=== PATIENT | male | born 2005 | race Caucasian/White ===

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

== ENCOUNTER 2024-03-05 21:53 | Emergency (ER) | payer OTHER, SELFPAY ==
--- OUTSIDE RECORDS SUMMARY | 2024-03-05 21:58 | XMS REPORT | Continuity of Care Document ---
Author Name Unknown Address [address] [facility] [address] [place] [address] [facility] thconnect Address [address] [facility] [address] [place] [address] Care Team Providers Care State Editor Name Role Phone Pcp, Patient Does Not Have A Primary Care Physic zoila STACI PINO Attending Clinician Unavailable STACI PINO Attending Clinician Unavailable Staci Pino NP Attending Clinician [phone] EDWIN TIRADO Attending Clinician Unavailable Edwin Tirado DO Attending Clinician [phone] ZEESHAN RANGEL Attending Clinician Unavailable Zeeshan Madrid Attending Clinician [phone] Mayte Pretty DO Attending Clinician [phone] CAMPOS AMADOR Attending Clinician Unavailable Campos Amador MD Attending Clinician +[phone] TOMAS SAINI Attending Clinician Unavailable Tomas Saini MD Attending Clinician [phone] KRISTAN Attending Clinician Unavailable ZEESHAN RANGEL Admitting Clinician Unavailable CAMPOS AMADOR Admitting Clinician Unavailable TOMAS SAINI Admitting Clinician Unavailable KRISTAN Admitting Clinician Unavailable Payers Payer Name Policy Type Policy Number Effective Date Expirati on Date Source [facility] [id number] [id number] 00:00:00 FORMERLY [facility] (MEDICAID REPLACEMENT - HMO) [id number] 2019 00:00:00 [facility] (MEDICAID REPLACEMENT - HMO) [id number] Problems Condition Name Condition Details Condition Category Status Onset Date Resolution Date Last Treatment Date Treating Clinician Comments Source History of drug abuse History of Drug Abuse Problem Active 2023-04 00:00: 00 [facility] Neck pain Neck Pain Problem Active 2023-04 00:00: 00 [facility] Attention deficit hyperactiv ity disorder, predominan tly inattentiv e type Attention Deficit Hyperactiv ity Disorder, Predominan tly Inattentiv e Type Problem Active 10-13 00:00: 00 [facility] Major depressive disorder Major Depressive Disorder Problem Active 2020-04 00:00: 00 [facility] Generalize d anxiety disorder Generalize d Anxiety Disorder Problem Active 2020-04 00:00: 00 [facility] Cannabis abuse Cannabis Abuse Problem Active 2020-04 00:00: 00 [facility] Opposition al defiant disorder Opposition al Defiant Disorder Problem Active 2020-04 00:00: 00 [facility] Allergies, Adverse Reactions, Alerts Allergy Name Allergy Type Status Severity Reaction(s) Onset Date Inactive Date Treating Clinician Comments Source NO KNOWN ALLERGIE S Drug Class Active [facility] Social History Social Habit Start Date Stop Date Quantity Comments Source Gender identity [facility] Sexual orientation [facility] Sex assigned at 2004 00:00:00 2005 00:00:00 [facility] Smoking Status Start Date Stop Date Source Light Tobacco Smoker [facility] Tobacco smoking consumption unknown [facility] Medications Ordered Medication Name Filled Medication Name Start Date Stop Date Current Medication? Ordering Clinician Indication Dosage Frequency Signature (SIG) Comments Components Source Lidocaine (LIDOCARE) 4 % patch 1 Patch 2023-04 22:00: 00 02-12 09:59 :00 Yes 1{patch } 1 Patch, Topical, Administer over 12 Hours, ONCE, 1 dose, On Thu02/12/24 at 1700, Routine [facility] methocarbam oL (ROBAXIN) tablet 1,000 mg 2023-04 21:15: 00 02-11 21:33 :00 No 1000mg 1,000 mg, Oral, ONCE, 1 dose, On Thu02/12/24 at 1615, [facility] dexamethaso ne sod phos PF injection 10 mg 2023-04 21:15: 00 02-11 21:33 :00 No 10mg 10 mg, Intramuscu lar, ONCE, 1 dose, On Thu02/12/24 at 1615, 1 mL [facility] ketorolac (TORADOL) injection 60 mg 2023-04 01:30: 00 02-11 00:50 :00 No 60mg 60 mg, Intramuscu lar, ONCE, 1 dose, On Thu02/11/24 at 2030, Routine [facility] methocarbam oL (ROBAXIN) tablet 1,000 mg 2023-04 00:45: 00 02-11 00:49 :00 No 1000mg 1,000 mg, Oral, ONCE, 1 dose, On Thu02/11/24 at 1945, [facility] methocarbam oL 500 mg tablet 2023-04 00:00: 00 Yes [id number] 500mg Take 1 tablet by mouth 4 (four) times daily. [facility] NaCl 0.9% (NS) bolus infusion 1,000 mL 11-05 20:30: 00 11-05 20:50 :00 No 1000mL at 999 mL/hr, 1,000 mL, IV Infusion, ONCE, 1 dose, On Thu11/06/23 at 1530, [facility] famotidine (PEPCID (PF)) injection 20 mg 11-05 19:45: 00 11-05 19:51 :00 No 20mg 20 mg, Slow IV Push, ONCE, 1 dose, On Thu11/06/23 at 1445, [facility] ondansetron (ZOFRAN (PF)) injection 4 mg 11-05 19:45: 00 11-05 19:51 :00 No 4mg 4 mg, Slow IV Push, ONCE, 1 dose, On Thu11/06/23 at 1445, [facility] ondansetron 4 mg disintegrat ing tablet 11-05 00:00: 00 Yes [id number] 4mg Take 1 tablet by mouth every 8 (eight) hours as needed for Nausea and Vomiting (N/V). [facility] ibuprofen (IBU) tablet 600 mg 2022-04 18:30: 00 04-04 18:55 :00 No 600mg 600 mg, Oral, ONCE, 1 dose, On 04/04/23 at 1230, [facility] NaCl 0.9% (NS) bolus infusion 1,000 mL 12-20 19:00: 00 12-20 21:00 :00 No 1000mL at 999 mL/hr, 1,000 mL, IV Piggyback, ONCE, 1 dose, On 12/20/22 at 1400, STAT [facility] ketorolac (TORADOL) injection 30 mg 12-20 19:00: 00 12-20 18:25 :00 No 30mg 30 mg, Slow IV Push, ONCE, 1 dose, On 12/20/22 at 1400, [facility] ibuprofen 600 mg tablet 12-20 00:00: 00 Yes [id number] 600mg Take 1 tablet by mouth every 8 (eight) hours as needed for Pain (scale 4-6). [facility] aripiprazol e 5 mg tablet TAKE 1 TABLET BY MOUTH ONCE DAILY WITH A MEAL aripiprazol e 5 mg tablet TAKE 1 TABLET BY MOUTH ONCE DAILY WITH A MEAL No aripiprazo le 5 mg tablet TAKE 1 TABLET BY MOUTH ONCE DAILY WITH A MEAL [facility] Program atomoxetine 25 mg capsule TAKE 1 CAPSULE BY MOUTH EVERY DAY WITH MEALS atomoxetine 25 mg capsule TAKE 1 CAPSULE BY MOUTH EVERY DAY WITH MEALS No atomoxetin e 25 mg capsule TAKE 1 CAPSULE BY MOUTH EVERY DAY WITH MEALS [facility] methocarbam ol 500 mg tablet Take 2 tablets every 8 hours by oral route as needed, for muscle spasm/pain. methocarbam ol 500 mg tablet Take 2 tablets every 8 hours by oral route as needed, for muscle spasm/pain. No 2 Q8H methocarba mol 500 mg tablet Take 2 tablets every 8 hours by oral route as needed, for muscle spasm/pain . [facility] Immunizations Ordered Immunization Name Filled Immunization Name Date Status Comments Source meningococcal MCV4P - ML meningococcal MCV4P - ML Unknown Completed [facility] Tdap - ML Tdap - ML Unknown [facility] varicella - ML varicella - ML Unknown Completed [facility] MMR - ML MMR - ML Unknown Completed [facility] IPV - ML IPV - ML Unknown Completed [facility] DTaP, unspecified formulation - ML DTaP, unspecified formulation - ML Unknown Completed [facility] Hep A, ped/adol, 2 dose - ML Hep A, ped/adol, 2 dose - ML Unknown Completed [facility] Hib (PRP-T) - ML Hib (PRP-T) - ML Unknown Completed [facility] pneumococcal conjugate PCV 7 - ML pneumococcal conjugate PCV 7 - ML Unknown Completed [facility] DTaP-Hep B-IPV - ML DTaP-Hep B-IPV - ML Unknown Completed [facility] Hep B, adolescent or pediatric - ML Hep B, adolescent or pediatric - ML Unknown Completed [facility] Vital Signs Vital Name Observation Time Observation Value Comments S ource BP Systolic 2024-03-03 00:00:00 132 mm[Hg] [facility] BMI (Body Mass Index) 2024-03-03 00:00:00 27.3 kg/m2 [place] [facility] Body Weight 2024-03-03 00:00:00 2466 [oz_av] Pepper sylvester [facility] Height 2024-03-03 00:00:00 63 [in_i] Kacy cade [facility] BP Diastolic 2024-03-03 00:00:00 85 mm[Hg] Juan Antonio agorda [facility] Body Weight 2024-03-01 00:00:00 152 [lb_av] Juan Antonio mayarda [facility] BP Diastolic 2024-03-01 00:00:00 85 mm[Hg] Juan Antonio mayarda [facility] BP Systolic 2024-03-01 00:00:00 120 mm[Hg] Rocael cesar [facility] Body height 2024-02-12 21:09:31 167.6 cm [facility] Body weight 2024-02-12 21:09:31 81.647 kg [facility] BMI 2024-02-12 21:09:31 29.05 kg/m2 [facility] Systolic blood pressure 2024-02-12 21:09:00 137 mm[Hg] [facility] Diastolic blood pressure 2024-02-12 21:09:00 96 mm[Hg] [facility] Heart rate 2024-02-12 21:09:00 101 /min [facility] Body temperature 2024-02-12 21:09:00 37.28 Bobbi [facility] Respiratory rate 2024-02-12 21:09:00 18 /min [facility] Oxygen saturation in Arterial blood by Pulse oximetry 2024-02-12 21:09:00 99 /min [facility] Systolic blood pressure 2024-02-12 01:50:00 125 mm[Hg] [facility] Diastolic blood pressure 2024-02-12 01:50:00 84 mm[Hg] [facility] Heart rate 2024-02-12 01:50:00 90 /min [facility] Body temperature 2024-02-12 01:50:00 37.06 Bobbi [facility] Respiratory rate 2024-02-12 01:50:00 14 /min [facility] Oxygen saturation in Arterial blood by Pulse oximetry 2024-02-12 01:50:00 100 /min [facility] Body height 2024-02-11 23:59:00 167.6 cm [facility] Body weight 2024-02-11 23:59:00 81.647 kg [facility] BMI 2024-02-11 23:59:00 29.05 kg/m2 [facility] BMI 2024-02-01 18:17:00 26.63 kg/m2 [facility] Oxygen saturation in Arterial blood by Pulse oximetry 2024-02-01 18:17:00 99 /min [facility] Systolic blood pressure 2024-02-01 18:17:00 140 mm[Hg] [facility] Diastolic blood pressure 2024-02-01 18:17:00 89 mm[Hg] [facility] Heart rate 2024-02-01 18:17:00 114 /min [facility] Body temperature 2024-02-01 18:17:00 36.78 Bobbi [facility] Respiratory rate 2024-02-01 18:17:00 16 /min [facility] Body height 2024-02-01 18:17:00 170.2 cm [facility] Body weight 2024-02-01 18:17:00 77.111 kg [facility] Systolic blood pressure 2023-11-06 20:38:00 110 mm[Hg] [facility] Diastolic blood pressure 2023-11-06 20:38:00 77 mm[Hg] [facility] Heart rate 2023-11-06 20:38:00 76 /min [facility] Body temperature 2023-11-06 20:38:00 36.22 Bobbi [facility] Respiratory rate 2023-11-06 20:38:00 16 /min [facility] Oxygen saturation in Arterial blood by Pulse oximetry 2023-11-06 20:38:00 100 /min [facility] Body height 2023-11-06 19:33:00 167.6 cm [facility] Body weight 2023-11-06 19:33:00 61.236 kg [facility] BMI 2023-11-06 19:33:00 21.79 kg/m2 [facility] Body Weight 2023-10-08 00:00:00 141 [lb_av] [facility] BP Diastolic 2023-10-08 00:00:00 60 mm[Hg] Juan Antonio agorda [facility] BP Systolic 2023-10-08 00:00:00 112 mm[Hg] Rocael cesar [facility] Systolic blood pressure 2023-04-04 18:12:00 128 mm[Hg] [facility] Diastolic blood pressure 2023-04-04 18:12:00 92 mm[Hg] [facility] Heart rate 2023-04-04 18:12:00 91 /min [facility] Body temperature 2023-04-04 18:12:00 36.89 Bobbi [facility] Respiratory rate 2023-04-04 18:12:00 16 /min [facility] Body height 2023-04-04 18:12:00 170.2 cm [facility] Body weight 2023-04-04 18:12:00 63.504 kg [facility] BMI 2023-04-04 18:12:00 21.93 kg/m2 [facility] Body mass index (BMI) [Percentile] Per age and sex 2023-04-04 18:12:00 44.17 % [facility] Oxygen saturation in Arterial blood by Pulse oximetry 2023-04-04 18:12:00 100 /min [facility] Systolic blood pressure 2022-12-20 21:00:00 107 mm[Hg] [facility] Diastolic blood pressure 2022-12-20 21:00:00 58 mm[Hg] [facility] Heart rate 2022-12-20 21:00:00 91 /min [facility] Respiratory rate 2022-12-20 21:00:00 16 /min [facility] Oxygen saturation in Arterial blood by Pulse oximetry 2022-12-20 21:00:00 100 /min [facility] Body temperature 2022-12-20 17:39:00 37.78 Bobbi [facility] Body height 2022-12-20 17:39:00 167.6 cm [facility] Body weight 2022-12-20 17:39:00 58.968 kg [facility] BMI 2022-12-20 17:39:00 20.98 kg/m2 [facility] Body mass index (BMI) [Percentile] Per age and sex 2022-12-20 17:39:00 32.89 % [facility] BP Diastolic 2021-02-14 00:00:00 73 mm[Hg] [place] [facility] BP Systolic 2021-02-14 00:00:00 134 mm[Hg] [place] [facility] Body Weight 2021-02-14 00:00:00 130.8 [lb_av] [facility] [place] [facility] Height 2020-05-26 00:00:00 63 [in_i] [place] [facility] [facility] BMI (Body Mass Index) 2020-05-26 00:00:00 23.6 kg/m2 [place] [facility] Body Weight 2020-05-26 00:00:00 133 [lb_av] [place] [facility] BP Diastolic 2019-02-19 00:00:00 75 mm[Hg] [place] [facility] Height 2019-02-19 00:00:00 63 [in_i] [place] [facility] BMI (Body Mass Index) 2019-02-19 00:00:00 22.8 kg/m2 [place] [facility] BP Systolic 2019-02-19 00:00:00 123 mm[Hg] [place] [facility] Body Weight 2019-02-19 00:00:00 128.6 [lb_av] [place] [facility] Procedures Procedure Date / Time Performed Performing Clinicia n Source XR, cervical spine, 2 or 3 view 2024-03-03 00:00:00 [facility] URINALYSIS 2024-02-01 20:14:00 Zeeshan Rangel [facility] US TESTICULAR TORSION 2024-02-01 19:56:21 Zeeshan Rangel [facility] LIPASE 2023-11-06 19:45:00 Mayte Pretty [facility] MAGNESIUM 2023-11-06 19:45:00 Mayte Pretty [facility] COMP. METABOLIC PANEL ([id number]) 2023-11-06 19:45:00 Mayte Pretty [facility] CBC WITH DIFF 2023-11-06 19:45:00 Mayte Pretty [facility] XR ABDOMEN ACUTE SERIES 2023-04-04 18:52:00 Campos Amador [facility] CT ABDOMEN PELVIS WO CONTRAST 2022-12-20 18:39:00 Tomas Saini [facility] URINALYSIS 2022-12-20 18:19:00 T[facility] LIPASE 2022-12-20 18:10:00 Tomas Saini [facility] COMP. METABOLIC PANEL ([id number]) 2022-12-20 18:10:00 Tomas Saini [facility] CBC WITH DIFF 2022-12-20 18:10:00 Toams Saini [facility] Encounters Start Date/Time End Date/Time Encounter Type Admission Type Attending [facility] Care Department Encounter ID Source 2024-03-03 00:00:00 2024-03-03 00:00:00 Rosemary Taylor, PLANT ANATOMIST: [address] [place] [address] , Ph. [facility] [phone] [facility] 2024-03-01 00:00:00 2024-03-01 00:00:00 Sea Hdez MD: [address], [place] [address] , Ph. [phone] [facility] [id number] Dagoberto [facility] 2024-02-17 00:00:00 2024-02-17 14:25:35 Letter (Out) [facility] (JAMES) [id number] [facility] 2024-02-12 16:09:00 2024-02-12 16:39:00 Emergency X KWADWOSTACI AREVALO YETUNDE [facility] ERT [id number] [facility] 2024-02-12 16:09:00 2024-02-12 16:39:00 Emergency Staci Pino [facility] 1.84.114 [id number] [id number] [id number] [facility] 2024-02-11 19:00:00 2024-02-11 21:33:00 Emergency X EDWIN TIRADO [facility] ERT [id number] [facility] 2024-02-11 19:00:00 2024-02-11 21:33:00 Emergency Edwin Tirado [facility] 1..114 350.1.13.10 [id number] [id number] [facility] 2024-02-01 13:20:00 2024-02-01 16:57:00 Emergency X ZEESHAN RANGEL [facility] ERT [id number] [facility] 2024-02-01 13:20:00 2024-02-01 16:57:00 Emergency Zeeshan Rangel [facility] 1.840.114 [id number] [id number] [id number] [facility] 2023-11-06 14:31:00 2023-11-06 15:53:00 Emergency Mayte Pretty [facility] [id number] [id number] [id number] [facility] 2023-10-08 00:00:00 2023-10-08 00:00:00 Sea Hdez MD: [address] [place] [address] , Ph. [phone] [facility] [id number] [facility] 2023-04-04 12:17:00 2023-04-04 13:22:00 Emergency X CHARLEY AMADORNELL [facility] ERT [id number] [facility] 2023-04-04 12:17:00 2023-04-04 13:22:00 Emergency Campos Amador [facility] [id number] [id number] [id number] [id number] [facility] 2022-12-20 12:38:00 2022-12-20 17:18:00 Emergency X LOBITOTOMAS SCALES [facility] ERT [id number] [facility] 2022-12-20 12:38:00 2022-12-20 17:18:00 Emergency Tomas Saini Liliana [facility] [id number] [id number] [id number] [id number] [facility] 2022-04-28 00:00:00 2022-04-28 00:00:00 Outpatient DESAI_RAKES H [facility] [id number] [facility] 2022-04-24 00:00:00 2022-04-24 00:00:00 Outpatient DESAI_RAKES H [facility] [id number] [facility] 2022-04-24 00:00:00 2022-04-24 00:00:00 Sea Hdez MD: [address] [place] [address] , Ph. [phone] [facility] [place] [facility] [place] [facility] [place] [id number] [facility] 2021-11-18 12:06:00 2021-11-18 12:06:00 Outpatient DESAI_RAKES H [facility] [id number] [facility] 2021-07-10 07:25:00 2021-07-10 07:25:00 Outpatient DESAI_RAKES H [facility] [id number] [facility] 2021-06-10 05:24:00 2021-06-10 05:24:00 Outpatient DESAI_RAKES H [facility] [id number] [facility] 2021-06-10 00:00:00 2021-06-10 00:00:00 James Glass, PSYD: [address] [place] [address] , Ph. [phone] [facility] [place] [facility] [place] [facility] [id number] [facility] 2021-05-23 12:55:00 2021-05-23 12:55:00 Outpatient DESAI_RAKES H [facility] [id number] [facility] 2021-05-23 00:00:00 2021-05-23 00:00:00 James Glass, PSYD: [address] [place] [address] , Ph. [phone] [facility] [place] [facility] [place] [facility] [id number] [facility] 2021-05-14 03:56:00 2021-05-14 03:56:00 Outpatient DESAI_RAKES H [facility] 2021-05-14 00:00:00 2021-05-14 00:00:00 James Glass, PSYD: [address] [place] [address] , Ph. [phone] [facility] [place] [facility] [id number] [facility] 2021-05-13 11:41:00 2021-05-13 11:41:00 Outpatient DESAI_RAKES H [facility] 2021-05-11 11:14:00 2021-05-11 11:14:00 Outpatient DESAI_RAKES H [facility] 2021-05-11 00:00:00 2021-05-11 00:00:00 Sea Hdez MD: [address] [place] [address] , Ph. [phone] [facility] [place] [facility] [id number] [facility] 2021-05-10 12:43:00 2021-05-10 12:43:00 Outpatient DESAI_RAKES H [facility] 2021-05-10 00:00:00 2021-05-10 00:00:00 James Glass, NERYYD: [address] [place] [address] , Ph. [phone] [facility] [place] [facility] [id number] [facility] 2021-04-06 11:04:00 2021-04-06 11:04:00 Outpatient DESAI_RAKES H [facility] [id number] [facility] 2021-04-06 00:00:00 2021-04-06 00:00:00 Sea Hdez MD: [address] [place] [address] , Ph. [phone] [facility] [place] [facility] [id number] [facility] 2021-04-04 12:23:00 2021-04-04 12:23:00 Outpatient DESAI_RAKES H [facility] [id number] [facility] 2021-04-04 00:00:00 2021-04-04 00:00:00 NERY JacquesYD: [address] [place] [address] , Ph. [phone] [facility] [place] [facility] [id number] [facility] 2021-04-03 09:33:00 2021-04-03 09:33:00 Outpatient DESAI_RAKES H [facility] [id number] [facility] 2021-04-01 09:43:00 2021-04-01 09:43:00 Outpatient DESAI_RAKES H [facility] [id number] [facility] 2021-02-14 04:41:00 2021-02-14 04:41:00 Outpatient DESAI_RAKES H [facility] [id number] [facility] 2021-02-14 00:00:00 2021-02-14 00:00:00 Sea Hdez MD: [address] [place] [address] , Ph. [phone] [facility] [place] [facility] [id number] [facility] 2020-10-20 12:44:00 2020-10-20 12:44:00 Outpatient DESAI_RAKES H [facility] [id number] [facility] 2020-10-20 00:00:00 2020-10-20 00:00:00 Sea Hdez MD: [place] [address] , Ph. [phone] [facility] [place] [facility] [id number] [facility] 2020-09-15 10:41:00 2020-09-15 10:41:00 Outpatient DESAI_RAKES H [facility] [id number] [facility] 2020-07-21 12:31:00 2020-07-21 12:31:00 Outpatient DESAI_RAKES H [facility] [id number] [facility] 2020-07-21 00:00:00 2020-07-21 00:00:00 Sea Hdez MD: [place] [address] , Ph. [phone] --[phone] [facility] [id number] [facility] 2020-05-26 10:47:00 2020-05-26 10:47:00 Outpatient DESAI_RAKES H [facility] [id number] [facility] 2020-05-26 00:00:00 2020-05-26 00:00:00 Sea Hdez MD: [place] [address] , Ph. [phone] [facility] [id number] [facility] 2020-05-24 12:38:00 2020-05-24 12:38:00 Outpatient DESAI_RAKES H [facility] [id number] [facility] 2020-02-17 05:10:00 2020-02-17 05:10:00 Outpatient DESAI_RAKES H [facility] [id number] [facility] 2020-02-17 00:00:00 2020-02-17 00:00:00 Sea Hdez MD: [id number], [facility] [place] [address] , Ph. [facility] [place] [facility] [phone] [facility] 2019-11-18 12:08:00 2019-11-18 12:08:00 Outpatient DESAI_RAKES H [facility] [id number] [facility] 2019-11-18 00:00:00 2019-11-18 00:00:00 Sea Hdez MD: [id number] [place] [address] , Ph. [facility] [place] [facility]3] [phone] [facility] 2019-04-14 00:00:00 2019-04-14 00:00:00 Sea Hdez MD: [address] [address] , Ph. [phone] --[phone] [facility] [place] [facility] [id number] [facility] 2019-02-19 00:00:00 2019-02-19 00:00:00 Sea Hdez MD: Sergio Sanchez, [place] [address] , Ph. [phone] [facility] [place] [facility] [phone] [facility] Results Test Description Test Time Test Comments Results Resul t Comments Source US TESTICULAR TORSION 7 20:37:28 EXAM: US TESTICULAR TORSION HISTORY: 18 years-old Male; Provided indication: r/o torsion, righttesticle pain swelling . TECHNIQUE: Ultrasound imaging with color and spectral Doppler of thescrotum was performed. Dry Plasterer Helper images were obtained for the record. COMPARISON: None FINDINGS:Right Testicle: The right testicle is normal in size, shape, andechotexture. The right testicle measures 4.2 x 2.5 x 2.8 cm, with a volumeof 15.5 mL. Normal arterial and venous waveforms are visualized. Normalflow is seen on color Doppler. No focal lesion is seen. Left Testicle: The left testicle is normal in size, shape, and echotexture.The left testicle measures 4.1 x 2.1 x 2.6 cm, with a volume of 11.7 mL.Normal arterial and venous waveforms are visualized. Normal flow is seen oncolor Doppler. No focal lesion is seen. Right Epididymis: The right epididymal head is normal in size anddemonstrates normal blood flow. There is a 1.5 x 1.2 x 1.1 cm anechoicstructure with posterior acoustic enhancement in the right epididymal head,which likely represent an epididymal cyst versus spermatocele. Left Epididymis: The left epididymal head is normal in size anddemonstrates normal blood flow. No sonographic evidence of varicocele is seen. There is bilateral small hydrocele. [facility]. METABOLIC PANEL (32439)2023-11-06 20:17:52* Test Item Value Reference Range Interpretation Comme nts NA (test code = 3355291051) 138 mmol/L 135-145 K (test code = 6866421460) 4.3 mmol/L 3.5-5.0 CL (test code = 6850976496) 98 mmol/L 98-108 CO2 TOTAL (test code = 6971170744) 32 mmol/L 23-31 H AGAP (test code = 7904189657) 8 2-16 BUN (test code = 2064973828) 19 mg/dL 7-23 GLUCOSE (test code = 1408198398) 94 mg/dL 70-110 CREATININE (test code = 2160-0) 0.94 mg/dL 0.60-1.25 TOTAL BILI (test code = 8680108373) 0.7 mg/dL 0.1-1.1 CALCIUM (test code = 0067654434) 9.4 mg/dL 8.6-10.6 T PROTEIN (test code = 3028416621) 8.2 g/dL 6.3-8.2 ALBUMIN (test code = 1926486468) 4.8 g/dL 3.5-5.0 ALK PHOS (test code = 8130189200) 68 U/L 34-122 ALTv (test code = 1742-6) 18 U/L 5-50 AST(SGOT) (test code = 3392836021) 31 U/L 13-40 eGFR (test code = 78497-8) 119.8 mL/min/1.73m2 CKD-EPI eGFR (2020). Assuming creatinine has been stable day-to-day for at least three months, the eGFR indicates Category G1 (>= 90 mL/min/1.73 m2) Lab Interpretation (test code = 74585-9) [facility]normal [facility]17:47* Test Item Value Reference Range Interpretation Comme nts LIPASE (test code = 1923968775) 46 U/L 0-220 Lab Interpretation (test cod e = 42733-6) Normal [facility] WITH [id number] 20:06:05* Test Item Value Reference Range Interpretation Comme nts WBC (test code = 6690-2) 4.65 4.20-10.70 RBC (test code = 789-8) 4.85 4.26-5.52 HGB (test code = 718-7) 14.6 g/dL 12.2-16.4 HCT (test code = 4544-3) 43.0 % 38.4-49.3 MCV (test code = 787-2) 88.7 fL 81.7-95.6 MCH (test code = 785-6) 30.1 pg 26.1-32.7 MCHC (test code = 786-4) 34.0 g/dL 31.2-35.0 RDW-SD (test code = 61988-7) 43.1 fL 38.5-51.6 RDW-CV (test code = 788-0) 13.3 % 12.1-15.4 PLT (test code = 777-3) 224 150-328 MPV (test code = 48961-1) 9.8 fL 9.8-13.0 NRBC/100 WBC (test code = 8208902757) 0.0 0.0-10.0 NRBC x10^3 (test code = 6226584290) See_Comment [Automated me ssage] The system which generated this result transmitted reference range: 10*3/?L. The reference range was not used to interpret this result as normal/abnormal. GRAN MAT (NEUT) % (test code = 770-8) 57.2 % IMM GRAN % (test code = 3183938078) 0.20 % LYMPH % (test code = 736-9) 30.8 % MONO % (test code = 5905-5) 8.4 % EOS % (test code = 713-8) 2.8 % BASO % (test code = 706-2) 0.6 % GRAN MAT x10^3(ANC) (test code = 4190821106) 2.66 10*3/uL 1.99-6.95 IMM GRAN x10^3 (test code = 9326274476) 0.00-0.06 LYMPH x10^3 (test code = 731-0) 1.43 10*3/uL 1.09-3.23 MONO x10^3 (test code = 742-7) 0.39 10*3/uL 0.36-1.02 EOS x10^3 (test code = 711-2) 0.13 10*3/uL 0.06-0.53 BASO x10^3 (test code = 704-7) 0.03 10*3/uL 0.01-0.09 [facility] Notes Date/Time Note Provider Source 2024-02-12 16:39:08 Patient is discharged from this ER. Prescriptions intact. Plan of care reviewed with patient, verbalized understanding. Aox4, NAD, VSS Rozina Mendosa RN [facility] 2024-02-12 16:07:42 Pt reports R lateral neck pain radiates to R shoulder. Pain radiates down bilateral arms. Denies injury. Pt reports seen yesterday for L neck pain. @ [facility] ER Ibuprofen 4 hrs police captain senior. Julian Shi RN [facility] 2024-02-11 21:32:53 Pt discharged to home, pt given printed and verbal discharge instructions regarding diagnosis, prescriptions provided and follow up with PCP. Pt verbalized understanding of instructions, pt awake alert oriented, resp reg unlabored, skin w/d, color appropriate for race, moves all ext well. No adverse reaction to meds given in ER noted upon discharge. Advised to seek medical attention for new/prolonged/worsening of symptoms, pt ambulated from unit with steady gait, in no apparent distress. Alvino Espinosa RN [facility] 2024-02-11 20:14:44 Collins Diego is a 18 year old male came in complaining of Left arm and shoulder pain since waking up this morning. Patient denies injury or trauma. No redness or swelling noted to the area. Took aleeve, ibuprofen and tylenol this morning without relief. Reports pain as sharp and at 9 in the pain scale [facility] 2024-02-11 18:57:39 Collins Diego is a 18 year old male c/o left arm and shoulder pain. Pt states that he did not injured his arm. Pt is able to raise his arm and fully rotate his arms. Pt denies taking any medications. No deformity or swelling to shoulder. No past medical history on file. Charo Posadas RN [facility] 2024-02-01 13:18:51 Collins Diego is a 18 year old male with right sided groin pain from inguinal hernia. Pt had one on the left that was already surgically repaired. Symptoms x 1 week. No difficulty with bowel movements; denies nausea. Daisha Bingham RN [facility] 2023-11-06 15:52:56 Pt given printed and verbal discharge instructions regarding Nausea and vomitting, encouraged hydration, Prescriptions provided Pt verbalized understanding of instructions, pt awake alert oriented, resp reg unlabored, skin w/d, color appropriate for race, moves all ext well,pt encouraged to follow up with pcp Advised to seek medical attention for new/prolonged/worsening of symptoms, No adverse reaction to meds given in ER noted upon discharge PIV d'cd, dressing to site, catheter in tact. Awake, alert oriented, resp reg unlabored, skin w/d, pt leaving amb with steady gait accompanied by PD, in no apparent distress Sara Butt RN [facility] 2023-11-06 15:30:00 Pt reports resolution of sxs. Provider aware. Officer at bedside. [facility] 2023-11-06 14:31:04 Pt to ED CO L sided abd pain and vomiting blood starting this morning. 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 Denies alcohol abuse. Denies dysuria or diarrhea. States some constipation. Denies sick contacts, denies changes in diet. No meds or medical hx. Ivon Metzger RN [facility] 2023-11-06 14:29:00 [facility] Emergency Department Note Patient Name: Collins Diego Date of : 2005 18 year old male Treatment Room: [place] [address] Primary Care Physician: [facility] Patient Escorted by: Law enforcement [8] Mode of Arrival: Law enforcement [6] EMS Treatment Prior to ED Arrival: EMPLOYEE SERVICES MANAGER treatment: None Travel and Exposure Screening: Symptoms Does patient have any of these symptoms?: (not recorded) Exposure Screening Has patient had contact with someone with a communicable disease in the last month?: (not recorded) Diseases exposed to:: (not recorded) Is Patient ?: (not recorded) Exposure Date: (not recorded) Chief Complaint: Chief Complaint Patient presents with Vomiting Blood Abdominal Pain History of Present Illness: The patient presents while in custody of [facility]'s officer for nausea vomiting started today. No diarrhea. No sick contacts. No bad food exposure. No recent trips or travel or antibiotics. He has been incarcerated for almost a month. No prior abdominal surgeries. He does have a history of depression but is not been on his medication in quite some time. He reports there is blood in his emesis but denies any history of anticoagulation use, liver disease, alcohol abuse or hepatitis. Here for evaluation. Past Medical History/Immunizations: History reviewed. No pertinent past medical history. Tetanus received in last 5 years: Yes Childhood immunizations: Up-to-date Allergies: No Known Allergies Past Social History: Substance & Sexual Activity No substance use or sexual activity history on file. Past Surgical History: History reviewed. No pertinent surgical history. Review of Systems: Review of Systems Constitutional: Negative for chills and fever. Respiratory: Negative for cough and shortness of breath. Cardiovascular: Negative for chest pain. Gastrointestinal: Positive for nausea and vomiting. Negative for abdominal pain and diarrhea. Genitourinary: Negative for dysuria. Musculoskeletal: Negative for arthralgias, neck pain and neck stiffness. Skin: Negative for wound. Neurological: Negative for dizziness. Psychiatric/Behavioral: Negative for agitation. Endocrine: Negative for goiter. Physical Exam: ED Triage Vitals [11/06/23 1433] Weight 61.2 kg (135 lb) Actual or estimated Estimated by patient/family report Height 1.676 m (5' 6") BP 121/90 Pulse 63 Resp 18 Temp 35.9 ?C (96.6 ?F) Temp source Oral SpO2 100 % Measured on Room air Physical Exam Vitals and nursing note reviewed. Constitutional: Appearance: Normal appearance. HENT: Head: Normocephalic and atraumatic. Cardiovascular: Rate and Rhythm: Normal rate and regular rhythm. Pulses: Normal pulses. Pulmonary: Effort: Pulmonary effort is normal. No respiratory distress. Abdominal: General: There is no distension. Palpations: Abdomen is soft. There is no mass. Tenderness: There is no abdominal tenderness. There is no guarding or rebound. Hernia: No hernia is present. Musculoskeletal: General: Normal range of motion. Cervical back: Normal range of motion and neck supple. Skin: General: Skin is warm and dry. Neurological: General: No focal deficit present. Mental Status: He is alert and oriented to person, place, and time. Radiology: No orders to display Lab Results: Lab Results COMP. METABOLIC PANEL (03569) - Abnormal Result Value Ref Range NA 138 135 - 145 mmol/L K 4.3 3.5 - 5.0 mmol/L CL 98 98 - 108 mmol/L CO2 TOTAL 32 (*) 23 - 31 mmol/L AGAP 8 2 - 16 BUN 19 7 - 23 mg/dL GLUCOSE 94 70 - 110 mg/dL CREATININE 0.94 0.60 - 1.25 mg/dL TOTAL BILI 0.7 0.1 - 1.1 mg/dL CALCIUM 9.4 8.6 - 10.6 mg/dL T PROTEIN 8.2 6.3 - 8.2 g/dL ALBUMIN 4.8 3.5 - 5.0 g/dL ALK PHOS 68 34 - 122 U/L ALTv 18 5 - 50 U/L AST(SGOT) 31 13 - 40 U/L eGFR 119.8 mL/min/1.73m2 LIPASE - Normal LIPASE 46 0 - 220 U/L MAGNESIUM - Normal MAGNESIUM 2.1 1.7 - 2.4 mg/dL CBC WITH DIFF WBC 4.65 4.20 - 10.70 10*3/?L RBC 4.85 4.26 - 5.52 10*6/?L HGB 14.6 12.2 - 16.4 g/dL HCT 43.0 38.4 - 49.3 % MCV 88.7 81.7 - 95.6 fL MCH 30.1 26.1 - 32.7 pg MCHC 34.0 31.2 - 35.0 g/dL RDW-SD 43.1 38.5 - 51.6 fL RDW-CV 13.3 12.1 - 15.4 % PLT 224 150 - 328 10*3/?L MPV 9.8 9.8 - 13.0 fL NRBC/100 WBC 0.0 0.0 - 10.0 /100 WBCs NRBC x10 3 <0.01 10*3/?L GRAN MAT (NEUT) % 57.2 % IMM GRAN % 0.20 % LYMPH % 30.8 % MONO % 8.4 % EOS % 2.8 % BASO % 0.6 % GRAN MAT x10 3 (ANC) 2.66 1.99 - 6.95 10*3/uL IMM GRAN x10 3 <0.03 0.00 - 0.06 10*3/uL LYMPH x10 3 1.43 1.09 - 3.23 10*3/uL MONO x10 3 0.39 0.36 - 1.02 10*3/uL EOS x10 3 0.13 0.06 - 0.53 10*3/uL BASO x10 3 0.03 0.01 - 0.09 10*3/uL EKG: If EKG completed, see Procedure Note. Orders and Treatments: Orders Placed This Encounter Procedures CBC WITH DIFF COMP. METABOLIC PANEL (97832) LIPASE Magnesium Orders Placed This Encounter Medications ondansetron (ZOFRAN (PF)) injection 4 mg famotidine (PEPCID (PF)) injection 20 mg NaCl 0.9% (NS) bolus infusion 1,000 mL ondansetron 4 mg disintegrating tablet First Provider Eval: ED Events Date/Time Event User Comments 11/06/23 1432 Medical Screening Begins MAYTE PRETTY DO -- 11/06/23 143 First Provider Evaluation MAYTE PRETTY DO -- ED COURSE Diagnosis/Impression as of 11/06/23 1537 Nausea and vomiting, unspecified vomiting type Procedures: Procedures MDM: Medical Decision Making The patient presents from [employer]'s office for evaluation for nausea and vomit started today. No diarrhea. No abdominal pain. He is not lightheaded or dizzy. No bad food exposure, recent trips or travel or antibiotics. No medication taken for symptoms. He has been in custody for almost 1 month. He does report there was blood in his emesis. He is not lightheaded or dizzy. He does not take any blood thinners. No history of hepatitis or liver disease or alcohol abuse. Vital signs are stable in the ER. His abdomen is soft and nontender on examination. His conjunctiva are pink. Will give IV fluids as well as antiemetics. Will check laboratory studies. Anticipate discharge home later. 1536 -the patient is doing well here in the ER. His laboratory studies are unremarkable. His nausea and vomiting has resolved after the medication given here in the ER. He was given a p.o. challenge and able to tolerate by mouth without difficulty. He remained stable here in the ER and is okay for discharge home with PCP follow-up. Recommend Zofran ODT as needed as well as the brat diet. Problems Addressed: Nausea and vomiting, unspecified vomiting type: acute illness or injury Amount and/or Complexity of Data Reviewed Labs: ordered. Decision-making details documented in ED Course. Risk Prescription drug management. Flowsheet Documentation: Scoring Tools: No data recorded Disposition/Condition: ED Disposition ED Disposition Disch - Home Condition Stable Comment -- Discharge Medications: Patient's Medications START taking these medications ONDANSETRON 4 MG DISINTEGRATING TABLET Take 1 tablet by mouth every 8 (eight) hours as needed for Nausea and Vomiting (N/V). CONTINUE taking these medications which have NOT CHANGED IBUPROFEN 600 MG TABLET Take 1 tablet by mouth every 8 (eight) hours as needed for Pain (scale 4-6). START taking Modified Medications as Prescribed No medications on file STOP taking these medications No medications on file Follow-up: Electronically signed by: Mayte Pretty DO 11/06/231536 [facility] 2022-12-20 16:44:01 Formatting of this n ote might be different from the original. Pt discharged with diagnosis of left flank pain, renal colic on left side, and acute left-sided low back pain without sciatica. Printed and verbal instructions reviewed with patient and [facility]. Prescriptions given x 1. Pt verbalized understanding of teaching, medications, and recommended follow-up. Denies questions or concerns at this time. Pt ambulatory at discharge. Appears in no apparent distress. No ataxia noted. Accompanied by [facility]. Em Weeks RN [facility] 2022-12-20 12:38:27 Formatting of this n ote might be different from the original. [facility] states: " Pt c/o pain in his left flank and pain in his right testicle. Not voiding since last night. I started an IV and gave 50 mcg fentanyl. He has had a surgery on his scrotum about 1 year ago" [facility]
[2024-03-05] MEDS ORDERED: NA CHLORIDE 0.9% 1,000 ML ONE (23:42)
--- NOTE | 2024-03-05 23:48 | RAD REPORT ---
EXAM DESCRIPTION: Hand Right 3 View CLINICAL HISTORY: hand injury TECHNIQUE: 4 views of the right hand are submitted. COMPARISON: None available for comparison FINDINGS: Fractures at the base of the third, fourth and fifth metacarpals. Dorsal dislocation of the fourth and fifth metacarpals with disruption of the carpometacarpal joint s paces. Avulsed bony fragments at the base of the fourth and fifth metacarpals. Carpal bones appear intact. IMPRESSION: Fractures at the base of the third, fourth and fifth metacarpals. Dorsal dislocation of the fourth an d fifth metacarpals with disruption of the carpometacarpal joint spaces. Electronically signed by: Jason Engle MD 03/05/2024 11:43 PM [facility] Due to temporary technical issues with the PACS/5th Finger reporting system, reports are being winston d by the in-house radiologist without review as a courtesy to ensure prompt reporting the interpreting radiologist is fully responsible for the content of the report. Transcribed Date/Time: 03/05/2024 11:48 PM
[2024-03-05] MEDS ORDERED: KETAMINE HCL IN 0.9 % NACL 50 MG/5 ML SYRINGE IV ONE (23:51)
[2024-03-05] MEDS ORDERED: ONDANSETRON 4 MG/2 ML VIAL ONE (23:52)
--- NOTE | 2024-03-06 00:22 | EDPHYS ---
Physician Documentation [facility] Name: Matthew Malone Age: 18 yrs Sex: Male : 2005 Arrival Date: 03/05/2024 Time: 21:53 Bed 13 Private MD: ED Physician Dimitri Brumfield HPI: 03/05 22:58 This 18 yrs old Male presents to ER via Ambulatory with complaints of Fall Injury, Hand ec2 Injury - right. 22:58 Patient arrives today for evaluation of a right hand injury. States that he punched ec2 concrete and subsequently is not having pain in the right hand. No other injuries or trauma.. Historical: - Allergies: 22:46 No Known Allergies; lg3 - Home Meds: 22:46 None [Active]; lg3 - PMHx: 22:46 None; lg3 - PSHx: 22:46 None; lg3 - Immunization history:: Adult Immunizations up to date. - Infectious Disease History:: Denies. - Social history:: Smoking status: Patient reports the use of cigarette tobacco products, smokes one-half pack cigarettes per day, Patient uses street drugs, marijuana. ROS: 22:58 Constitutional: as per hpi ec2 Exam: 22:58 Constitutional: GEN: NAD Head: atraumatic Eyes: EOMI Ears: External ears are ec2 normal. CV: regular rate LUNGS: no respiratory distress ABD: non-distended SKIN: no evidence of rashes MSK: Right hand with significant swelling around the fourth and fifth metacarpals. TTP noted. Vital Signs: 22:42 BP 109 / 48; Pulse 107; Resp 17 S; Temp 98.1(O); Pulse Ox 94% on R/A; Weight 68.04 kg lg3 (R); Height 5 ft. 6 in. (R); Pain 9/10; 03/06 00:02 BP 108 / 68; Pulse 86; Resp 16 S; Pulse Ox 100% on R/A; lg3 00:48 BP 110 / 64; Pulse 80; Resp 20; Temp 98(O); kj2 03/05 22:42 Body Mass Index 24.21 (68.04 kg, 167.64 cm) - Percentile 65.7 % lg3 03/05 22:42 Pain Scale: Adult lg3 Procedures: 00:20 Reduction: of the MCP of right ring finger and MCP of right little finger, using ec2 manipulation, traction, Immobilized with ulnar gutter splint. Patient tolerated well. Post reduction film - reveals improved alignment. MDM: 03/05 22:37 Medical Screening Exam initiated ec2 22:58 Data reviewed: vital signs. ED course: Patient arrives today for right hand injury. ec2 Examination remarkable for significant swelling and deformity present. Hand x-ray independently reviewed and interpreted by me, shows dislocation of the fifth metacarpal. Will give the patient pain dose ketamine and reduce the injury. Also bony abnormality noted at the base of the fourth and fifth metacarpals, suspect associated fracture. Patient require splint.. 03/06 00:20 ED course: Positive to reduce the fracture dislocation without issue. Repeat x-ray ec2 independently reviewed and interpreted by me, shows improvement in positioning. Will discharge home and follow-up with orthopedic surgery. Return precautions given.. 03/05 22:00 Order name: Hand Right 3 View XRAY ec2 03/05 23:53 Order name: Hand Right 3 View XRAY ec2 03/05 22:56 Order name: IV Start; Complete Time: 23:04 ec2 03/05 22:56 Order name: Misc. Order: pain dose ketamine; Complete Time: 00:05 ec2 03/05 23:01 Order name: Splint - Ulnar Gutter; Complete Time: 00:32 ec2 Administered Medications: 03/05 23:46 CANCELLED (Physician Discretion): [id number] mg IVP once ec2 03/06 00:01 Drug: NS 0.9% IV 1000 ml IV at 1000 ml once; to be given as a bolus over 60 minutes lg3 Route: IV; Rate: 1000 ml; Site: left antecubital; 00:01 Drug: Ketamine IVP 35 mg IVP once Route: IVP; Site: left antecubital; lg3 00:01 Drug: Ondansetron IVP 4 mg IVP once; over 2 minutes Route: IVP; Site: left antecubital; lg3 00:25 Follow up: Response: No adverse reaction lg3 Disposition Summary: 03/06/24 00:21 Discharge Ordered Notes: Location: Home ec2 Condition: Stable ec2 Diagnosis - Fractures of 3rd, 4th and 5th Right Proximal Metacarpals ec2 - Dislocation of 4th and 5th Metacarpals ec2 Followup: ec2 - With: Priyank Jarquin MD - When: - Reason: Recheck today's complaints Discharge Instructions: - Discharge Summary Sheet ec2 - Closed Reduction for Metacarpal Dislocation, Care After ec2 Forms: - Medication Reconciliation Form ec2 - Antibiotic Education ec2 - Prescription Opioid Use ec2 - Patient Portal Instructions ec2 - Leadership Thank You Letter ec2 Prescriptions: - acetaminophen-codeine 300-30 mg Oral tablet - take 1 tablet ORAL route every 8 hours as needed for pain; 20 tablet; Refills: ec2 0, Product Selection Permitted Signatures: Dispatcher [employer] Laya Crouch RN RN lg3 Dimitri Brumfield MD MD ec2 Corrections: (The following items were deleted from the chart) 03/05 22:58 22:58 Patient arrives today for evaluation of a right hand injury.. ec2 ec2 23:01 22:58 ED course: Patient arrives today for right hand injury. Examination remarkable ec2 for significant swelling and deformity present. Hand x-ray independently reviewed and interpreted by me, shows dislocation of the fifth metacarpal. Will give the patient pain dose ketamine and reduce the injury.. ec2 23:46 22:56 Ketamine IVP 25 mg IVP once ordered. ec2 ec2
--- NOTE | 2024-03-06 00:22 | ER ---
Nurse's Notes [facility] Name: Matthew Malone Age: 18 yrs Sex: Male : 2005 Arrival Date: 03/05/2024 Time: 21:53 Bed 13 Private MD: Diagnosis: Fractures of 3rd, 4th and 5th Right Proximal Metacarpals;Dislocation of 4th and 5th Metacarpals Presentation: 03/05 22:42 Chief complaint: Patient states: punched concrete with right hand. pain and swelling lg3 noted. Coronavirus screen: Client denies travel out of the [place] in the last 14 days. At this time, the client does not indicate any symptoms associated with coronavirus-19. Ebola Screen: No symptoms or risks identified at this time. Initial Sepsis Screen: Does the patient meet any 2 criteria? No. Patient's initial sepsis screen is negative. Does the patient have a suspected source of infection? No. Patient's initial sepsis screen is negative. Risk Assessment: Do you want to hurt yourself or someone else? Patient reports no desire to harm self or others. Onset of symptoms was March 05, 2024. 22:42 Method Of Arrival: Ambulatory lg3 22:42 Acuity: ALYSON 3 lg3 Triage Assessment: 22:46 General: Appears in no apparent distress. uncomfortable, Behavior is calm, cooperative. lg3 Pain: Complains of pain in right hand. EENT: No deficits noted. No signs and/or symptoms were reported regarding the EENT system. Neuro: No deficits noted. Chen Agitation-Sedation Scale (RASS): 0 - Alert and Calm Level of Consciousness is awake, alert, obeys commands, Oriented to person, place, time, situation. Cardiovascular: No deficits noted. Denies chest pain, shortness of breath, Capillary refill < 3 seconds Clubbing of nail beds is absent JVD is absent Patient's skin is warm and dry. Respiratory: No deficits noted. Airway is patent Respiratory effort is even, unlabored, Respiratory pattern is regular, symmetrical. GI: No deficits noted. No signs and/or symptoms were reported involving the gastrointestinal system. : No signs and/or symptoms were reported regarding the genitourinary system. Derm: Skin is intact, is healthy with good turgor, Skin is dry, Skin is normal, Skin temperature is warm Wound noted right hand. Musculoskeletal: Circulation, motion, and sensation intact. Range of motion: intact in all extremities, Bony deformity noted of right hand Swelling present in right hand. Historical: - Allergies: 22:46 No Known Allergies; lg3 - Home Meds: 22:46 None [Active]; lg3 - PMHx: 22:46 None; lg3 - PSHx: 22:46 None; lg3 - Immunization history:: Adult Immunizations up to date. - Infectious Disease History:: Denies. - Social history:: Smoking status: Patient reports the use of cigarette tobacco products, smokes one-half pack cigarettes per day, Patient uses street drugs, marijuana. Screenin:42 [facility] ED Fall Risk Assessment (Adult) History of falling in the last 3 months, lg3 including since admission No falls in past 3 months (0 pts) Confusion or Disorientation No (0 pts) Intoxicated or Sedated No (0 pts) Impaired Gait No (0 pts) Mobility Assist Device Used No (0 pt) Altered Elimination No (0 pt) Score/Fall Risk Level 0 - 2 = Low Risk Oriented to surroundings, Maintained a safe environment, Educated pt \T\ family on fall prevention, incl call for assistance when getting out of bed, Assessed \T\ reinforced patient's understanding of fall precautions. Abuse screen: Denies threats or abuse. Denies injuries from another. Nutritional screening: No deficits noted. Tuberculosis screening: No symptoms or risk factors identified. Assessment: 22:42 General: see triage assessment. lg3 03/06 00:39 Reassessment: Patient appears in no apparent distress at this time. Patient and/or kj2 family updated on plan of care and expected duration. Pain level reassessed. Patient is alert, oriented x 3, equal unlabored respirations, skin warm/dry/pink. Vital Signs: 03/05 22:42 BP 109 / 48; Pulse 107; Resp 17 S; Temp 98.1(O); Pulse Ox 94% on R/A; Weight 68.04 kg lg3 (R); Height 5 ft. 6 in. (R); Pain 01/04; 03/06 00:02 BP 108 / 68; Pulse 86; Resp 16 S; Pulse Ox 100% on R/A; lg3 00:48 BP 110 / 64; Pulse 80; Resp 20; Temp 98(O); kj2 03/05 22:42 Body Mass Index 24.21 (68.04 kg, 167.64 cm) - Percentile 65.7 % lg3 11 22:42 Pain Scale: Adult lg3 ED Course: 03/05 21:55 Patient arrived in ED. ra3 22:34 Dimitri Brumfield MD is Attending Physician. ec2 22:42 Hand Right 3 View XRAY In Process Unspecified. EDMS 22:42 Patient has correct armband on for positive identification. Placed in gown. Bed in low lg3 position. Call light in reach. Side rails up X 1. Client placed on continuous cardiac and pulse oximetry monitoring. NIBP monitoring applied. Door closed. Noise minimized. Warm blanket given. Pillow given. Family accompanied patient. 22:44 Triage completed. lg3 22:46 Arm band placed on left wrist. lg3 23:04 Inserted saline lock: 20 gauge in left antecubital area, using aseptic technique. ty Flushed with 10 mL NS. 03/06 00:04 Assist provider with reduction of right right ring finger right little finger using lg3 manipulation, Set up for procedure. Performed by Dimitri Brumfield MD Immobilized with wrist splint, Patient tolerated well. 00:08 Hand Right 3 View XRAY In Process Unspecified. EDMS 00:21 Priyank Jarquin MD is Referral Physician. ec2 00:32 Orthoglass splint: Ulnar gutter/Boxer splint applied on right forearm. ty 00:38 Bethanie Pro, MAGDALENA is Primary Nurse. kj2 00:47 Provided Education on: pain management. kj2 00:48 IV discontinued, intact, bleeding controlled, No redness/swelling at site. Pressure kj2 dressing applied. Administered Medications: 03/05 23:46 CANCELLED (Physician Discretion): [id number] mg IVP once ec2 03/06 00:01 Drug: NS 0.9% IV 1000 ml IV at 1000 ml once; to be given as a bolus over 60 minutes lg3 Route: IV; Rate: 1000 ml; Site: left antecubital; 00:01 Drug: Ketamine IVP 35 mg IVP once Route: IVP; Site: left antecubital; lg3 00:01 Drug: Ondansetron IVP 4 mg IVP once; over 2 minutes Route: IVP; Site: left antecubital; lg3 00:25 Follow up: Response: No adverse reaction lg3 Medication: 00:05 VIS not applicable for this client. lg3 Outcome: 00:21 Discharge ordered by . ec2 00:38 Discharged to home ambulatory, kj2 00:38 Condition: stable 00:47 Discharge instructions given to patient, family, Instructed on discharge instructions, kj2 follow up and referral plans. medication usage, Demonstrated understanding of instructions, follow-up care, medications, Prescriptions given X 1, 00:53 Patient left the ED. kj2 Signatures: Dispatcher [employer] Laya Crouch, RN RN lg3 Dimitri Brumfield MD MD ec2 Olesya Vinson ra3 Francois Helms Krystal, RN RN kj2
[2024-03-06 02:01] VITALS: BP 110/64; TEMP 98; O2SAT 100
--- NOTE | 2024-03-06 02:55 | RAD REPORT ---
EXAM DESCRIPTION: XR HAND 3 VIEWS RIGHT 03/06/2024 12:51 AM SENIOR GAMEM[employer]ER CLINICAL HISTORY: 18 years, Male, Post reduction. COMPARISON: XR Hand Right 03/05/2024 10:34:43 PM. FINDINGS: 3 X-ray views of the right hand (frontal lateral and oblique projections) were performed. Bones: There has been successful reduction of the previous described dorsal dislocation of the fourth and fifth metacarpal along the carpal metacarpal joint. There is a small residual avulsed fracture fragment within the dorsal aspect of the distal carpal row/hamate area. Soft tissues: There is associated subcutaneous swelling. Joints: No gross articular abnormality is identified. Others: There are no gross intraosseous lesions. No periosteal reaction were seen. No radiopaque foreign body. IMPRESSION: Successful reduction of the previous described dorsal dislocation of the fourth and fifth carpometaca rpal joints. Small residual avulsed fracture fragment within the dorsal aspect of the distal carpal row/hamate are a. Electronically signed by: Jan Lemus MD 03/06/2024 01:14 AM SENIOR GAM[employer]ER Due to temporary technical issues with the PACS/[employer] reporting system, reports are being winston d by the in-house radiologist without review as a courtesy to ensure prompt reporting the interpreting radiologist is fully responsible for the content of the report. Transcribed Date/Time: 03/06/2024 2:55 AM
== END 2024-03-06 00:53 | disposition home or self-care (01) ==
LOC: ER 21:53
DX: S62.392A Other fracture of third metacarpal bone, right hand, initial encounter for closed fracture (principal); S62.394A Other fracture of fourth metacarpal bone, right hand, initial encounter for closed fracture; S62.396A Other fracture of fifth metacarpal bone, right hand, initial encounter for closed fracture
CPT/HCPCS: 96374; 96375; 99285; J2405; J7030